=== PATIENT | male | born 1955 | race Caucasian/White ===

== ENCOUNTER 2017-03-27 18:42 | Emergency (ER) | payer BC ==
[~2017-03-27] VITALS: Ht 195.6 cm; Wt 113.4 kg
[2017-03-27] MEDS ORDERED: ASPIRIN 81 MG CHEW TAB PO ONE (19:00)
[2017-03-27] MEDS ORDERED: VITAMIN B6 PO (19:17)
[2017-03-27] MEDS ORDERED: ASPIRIN EC81 MG PO (19:17)
[2017-03-27] MEDS ORDERED: PREDNISONE20 MG PO (19:17)
[2017-03-27 19:48] LABS: BASOPHILS # (AUTO) 0.1 (0.0-0.1); BASOPHILS % 0.6 % (0.0-1.0); EOSINOPHILS # (AUTO) 0.2 (0.0-0.4); EOSINOPHILS % 1.8 % (0.0-6.0); HEMATOCRIT 48.6 % (38.2-49.6); LYMPHOCYTES % 10.9 % (18.0-39.1); MEAN CORPUSCULAR HEMOGLOBIN 31.8 pg (28-32); MONOCYTES % 10.3 % (4.4-11.3); NEUTROPHILS # (AUTO) 7.1 (2.1-6.9); NEUTROPHILS % 75.4 % (38.7-80.0); PLATELET COUNT 197 x10e3/uL (140-360); RED BLOOD COUNT 5.34 x10e6/uL (4.3-5.7); RED CELL DISTRIBUTION WIDTH 13.2 % (11.7-14.4)
[2017-03-27 19:53] LABS: INR 0.93; PROTHROMBIN TIME 12.9 seconds (11.9-14.5)
[2017-03-27 19:54] LABS: PARTIAL THROMBOPLASTIN TIME 31.5 seconds (23.8-35.5)
--- NOTE | 2017-03-27 19:56 | Diagnostic Imaging Report ---
CHEST SINGLE (PORTABLE), 03/27/2017 6:55 PM Technique: CHEST SINGLE (PORTABLE) Comparison: 01/24/2017 Clinical history: Chest pain Findings: Stable appearance of the heart, mediastinum, lungs, and pleural spaces. Unchanged upper lung predominant scarring and traction bronchiectasis with underlying multiple calcified kev disease. Impression: No significant change Signed by: Dr Amber Whitlock MD on 03/27/2017 7:52 PM
[2017-03-27 20:02] LABS: ALANINE AMINOTRANSFERASE 42 IU/L (0-55); ALBUMIN 3.6 g/dL (3.5-5.0); ALKALINE PHOSPHATASE 71 IU/L (40-150); ANION GAP 13.4 mmol/L (8-16); BLOOD UREA NITROGEN 15 mg/dL (7-26); BUN/CREATININE RATIO 14 (6-25); CARBON DIOXIDE 29 mmol/L (22-29); CHLORIDE 97 mmol/L (98-107); CREATINE KINASE 36 IU/L (30-200); CREATININE, SERUM 1.04 mg/dL (0.72-1.25); EST GLOMERULAR FILTRATION RATE > 60 ML/MIN (60-); GLUCOSE 88 mg/dL (74-118); POTASSIUM 3.4 mmol/L (3.5-5.1); SODIUM 136 mmol/L (136-145)
[2017-03-27 20:09] LABS: TROPONIN I 0.004 ng/mL (0-0.300)
--- NOTE | 2017-03-27 20:50 | Diagnostic Imaging Report ---
EXAMINATION: Head CT without contrast. HISTORY:Headache. COMPARISON:None. TECHNIQUE: Multidetector axial images were obtained from the foramen magnum to the vertex without contrast. The images were reconstructed using brain and bone algorithms. Thin section brain images were reformatted into coronal and sagittal planes. Intravenous contrast: None IMAGE QUALITY: Acceptable. FINDINGS: Skull/scalp: Nonspecific superficial, multiple punctate radiopaque densities in the suboccipital and frontal scalp may represent foreign body, debris. Parenchyma: No abnormal density. No acute hemorrhage, mass or acute major vascular territorial infarct. Arteries: No density suggestive of thrombosis. Dural sinuses: No abnormal density suggestive of thrombosis. Ventricles: No hydrocephalus or displacement. Extra-axial spaces: No abnormal density. Brain volume: Normal for age. Craniocervical junction: No mass, Chiari malformation, or basilar invagination. Sella: No mass. Paranasal/mastoid sinuses: Small polyp/retention cyst in right maxillary sinus. IMPRESSION: No intracranial abnormality. Signed by: Dr. Becca Uribe M.D. on 03/27/2017 8:47 PM
[2017-03-27 22:27] VITALS: BP 135/54
== END 2017-03-27 22:28 | disposition home or self-care (01) ==
LOC: ER 18:42
DX: R05 Cough (principal); D86.9 Sarcoidosis, unspecified; Z79.82 Long term (current) use of aspirin; Z79.51 Long term (current) use of inhaled steroids
CPT/HCPCS: 36415; 70450; 71010; 80053; 82550; 82553; 83605; 83880; 84484; 85025; 85610; 85730; 87040; 87071; 87205; 87400; 93005; 99284